=== PATIENT | female | born 1975 | race Caucasian/White ===

== ENCOUNTER 2020-12-23 19:27 | Emergency (ER) | payer SELFPAY ==
[2020-12-23] MEDS ORDERED: Sodium Chloride 0.9% 1,000 ML IV STA (20:16)
[2020-12-23] MEDS ORDERED: Sodium Chloride 0.9% 10 ML Syringe FLUSH PRN (20:16)
--- NOTE | 2020-12-23 20:24 | EDM.PDOC ---
ED HPI GENERAL MEDICAL PROBLEM - General Chief Complaint: PUMP TENDER Problem Stated Complaint: HEAVY VAGINAL BLEEDING Time Seen by Provider: 12/23/20 20:00 Source of Information: Reports: Patient History Limitations: Reports: Language Barrier (Family member is there to help) - History of Present Illness INITIAL COMMENTS - FREE TEXT/NARRATIVE: The patient presents for heavy vaginal bleeding. Her period started on Wednesday and she usually has heavy bleeding but this is worse. She feels lightheaded at times. She will also feels short of breath when she gets lightheaded. She does not think she is . She also has a slight cough and sore throat. She has no chest pain, abdominal pain, nausea or vomiting. She has no medical problems. Onset: Gradual Duration: Day(s): (3) Location: Reports: Pelvis Quality: Reports: Other (cramp) Severity: Mild Improves with: Reports: None Worsens with: Reports: None Associated Symptoms: Reports: No Other Symptoms Back Pain Score (Numeric/FACES): 5 - Related Data Allergies Allergy/AdvReac Type Severity Reaction Status Date / Time No Known Allergies Allergy Verified 12/23/20 20:02 Home Meds: Home Meds . [No Known Home Meds] 12/23/20 [History] Past Medical History - Past Health History Medical/Surgical History: Denies Medical/Surgical History Social & Family History - Tobacco Use Tobacco Use Status *Q: Never Tobacco User - Caffeine Use Caffeine Use: Reports: None - Recreational Drug Use Recreational Drug Use: No ED ROS GENERAL - Review of Systems Review Of Systems: See Below Constitutional: Reports: No Symptoms HEENT: Reports: No Symptoms Respiratory: Reports: Shortness of Breath. Denies: Cough Cardiovascular: Reports: Lightheadedness Endocrine: Reports: No Symptoms GI/Abdominal: Reports: No Symptoms : Reports: Other (Heavy vaginal bleeding) Musculoskeletal: Reports: No Symptoms ED EXAM, GI/ABD - Physical Exam Exam: See Below Exam Limited By: No Limitations General Appearance: Alert, No Apparent Distress Ears: Normal External Exam Nose: Normal Inspection Head: Atraumatic, Normocephalic Neck: Normal Inspection Respiratory/Chest: No Respiratory Distress, Lungs Clear, Normal Breath Sounds Cardiovascular: Regular Rate, Rhythm, No Edema, No Murmur GI/Abdominal Exam: Soft, Non-Tender, No Organomegaly, No Mass (Female) Exam: Vaginal Bleeding (moderate bleeding from the uterus) Back Exam: Normal Inspection Extremities: Normal Inspection Neurological: Alert, Oriented, No Motor/Sensory Deficits Course - Vital Signs Last Recorded V/S: Last Vital Signs Temp 97.9 F 12/23/20 19:55 Pulse 93 12/23/20 19:55 Resp 20 12/23/20 19:55 BP 122/45 L 12/23/20 19:55 Pulse Ox 100 12/23/20 19:55 - Orders/Labs/Meds Orders: Active Orders 24 hr Category Date Time Status Pelvic Exam, Set Up [RC] ASDIRECTED Care 12/23/20 20:17 Active Peripheral IV Care [RC] . DIRECTED Care 12/23/20 20:16 Active Transvaginal Non OB [US] Stat Exams 12/23/20 20:17 Taken ANTIBODY IDENTIFICATION [BBK] Stat Lab 12/23/20 20:25 Results RED BLOOD CELLS LP [BBK] Stat Lab 12/23/20 20:25 Results TYPE AND SCREEN [BBK] Stat Lab 12/23/20 20:25 Results Sodium Chloride 0.9% [Saline Flush] Med 12/23/20 20:16 Active 10 ml FLUSH ASDIRECTED PRN medroxyPROGESTERone [Provera] Med 12/23/20 22:23 Active 10 mg PO DAILY Peripheral IV Insertion Adult [OM.PC] Stat Oth 12/23/20 20:16 Ordered Transfuse PRBC [Transfuse Red Blood Cells] [COMM] Stat Oth 12/23/20 21:20 Ordered Medication Orders Medroxyprogesterone Acetate (Medroxyprogesterone 10 Mg Tab) 10 mg PO DAILY [facility] Last Admin: 12/23/20 22:27 Dose: 10 mg Documented by: AFUA Sodium Chloride (Sodium Chloride 0.9% 10 Ml Syringe) 10 ml FLUSH ASDIRECTED PRN PRN Reason: Keep Vein Open Last Admin: 12/23/20 20:54 Dose: 10 ml Documented by: AFUA Labs: Laboratory Tests 12/23/20 12/23/20 12/23/20 Range/Units 20:25 20:25 20:25 WBC (3.98-10.04) K/mm3 RBC (3.98-5.22) M/mm3 Hgb (11.2-15.7) gm/dl Hct (34.1-44.9) % MCV (79.4-94.8) fl MCH (25.6-32.2) pg MCHC (32.2-35.5) g/dl RDW Std Deviation (36.4-46.3) fL Plt Count (182-369) K/mm3 MPV (9.4-12.3) fl Neut % (Auto) (34.0-71.1) % Lymph % (Auto) (19.3-51.7) % [place] % (Auto) (4.7-12.5) % Eos % (Auto) (0.7-5.8) Baso % (Auto) (0.1-1.2) % Neut # (Auto) (1.56-6.13) K/mm3 Lymph # (Auto) (1.18-3.74) K/mm3 [place] # (Auto) (0.24-0.36) K/mm3 Eos # (Auto) (0.04-0.36) K/mm3 Baso # (Auto) (0.01-0.08) K/mm3 Manual Slide Review Sodium 131 L (136-145) mEq/L Potassium 3.7 (3.5-5.1) mEq/L Chloride 98 (98-107) mEq/L Carbon Dioxide 23 (21-32) mEq/L Anion Gap 13.7 (5-15) BUN 11 (7-18) mg/dL Creatinine 0.8 (0.55-1.02) mg/dL Est Cr Clr Drug Dosing 73.46 mL/min Estimated GFR (MDRD) > 60 (>60) mL/min BUN/Creatinine Ratio 13.8 L (14-18) Glucose 124 H (70-99) mg/dL Calcium 7.9 L (8.5-10.1) mg/dL Total Bilirubin 0.2 (0.2-1.0) mg/dL AST 17 (15-37) U/L ALT 17 (14-59) U/L Alkaline Phosphatase 50 (46-116) U/L Total Protein 6.5 (6.4-8.2) g/dl Albumin 3.2 L (3.4-5.0) g/dl Globulin 3.3 gm/dL Albumin/Globulin Ratio 1.0 (1-2) HCG, Qual Negative (NEGATIVE) SARS-CoV-2 RNA (AL) (NEGATIVE) Blood Type O POSITIVE Gel Antibody Screen Positive Crossmatch See Detail 12/23/20 12/23/20 Range/Units 21:11 22:55 WBC 8.66 (3.98-10.04) K/mm3 RBC 2.40 L (3.98-5.22) M/mm3 Hgb 3.8 L* (11.2-15.7) gm/dl Hct 15.2 L (34.1-44.9) % MCV 63.3 L (79.4-94.8) fl MCH 15.8 L (25.6-32.2) pg MCHC 25.0 L (32.2-35.5) g/dl RDW Std Deviation 44.9 (36.4-46.3) fL Plt Count 291 (182-369) K/mm3 MPV 10.0 (9.4-12.3) fl Neut % (Auto) 75.8 H (34.0-71.1) % Lymph % (Auto) 15.0 L (19.3-51.7) % Perkins % (Auto) 8.7 (4.7-12.5) % Eos % (Auto) 0.2 L (0.7-5.8) Baso % (Auto) 0.2 (0.1-1.2) % Neut # (Auto) 6.56 H (1.56-6.13) K/mm3 Lymph # (Auto) 1.30 (1.18-3.74) K/mm3 Perkins # (Auto) 0.75 H (0.24-0.36) K/mm3 Eos # (Auto) 0.02 L (0.04-0.36) K/mm3 Baso # (Auto) 0.02 (0.01-0.08) K/mm3 Manual Slide Review Abnormal smear Sodium (136-145) mEq/L Potassium (3.5-5.1) mEq/L Chloride (98-107) mEq/L Carbon Dioxide (21-32) mEq/L Anion Gap (5-15) BUN (7-18) mg/dL Creatinine (0.55-1.02) mg/dL Est Cr Clr Drug Dosing mL/min Estimated GFR (MDRD) (>60) mL/min BUN/Creatinine Ratio (14-18) Glucose (70-99) mg/dL Calcium (8.5-10.1) mg/dL Total Bilirubin (0.2-1.0) mg/dL AST (15-37) U/L ALT (14-59) U/L Alkaline Phosphatase (46-116) U/L Total Protein (6.4-8.2) g/dl Albumin (3.4-5.0) g/dl Globulin gm/dL Albumin/Globulin Ratio (1-2) HCG, Qual (NEGATIVE) SARS-CoV-2 RNA (AL) Positive H (NEGATIVE) Blood Type Gel Antibody Screen Crossmatch Meds: Medications Generic Name Dose Route Start Last Admin Trade Name Freq PRN Reason Stop Dose Admin Medroxyprogesterone Acetate 10 mg 12/23/20 22:23 12/23/20 22:27 Medroxyprogesterone 10 Mg Tab PO 10 mg DAILY [facility] Administration Sodium Chloride 10 ml 12/23/20 20:16 12/23/20 20:54 Sodium Chloride 0.9% 10 Ml Syringe FLUSH 10 ml ASDIRECTED PRN Administration Keep Vein Open Discontinued Medications Generic Name Dose Route Start Last Admin Trade Name Freq PRN Reason Stop Dose Admin Sodium Chloride 1,000 mls @ 1,000 mls/hr 12/23/20 20:16 12/23/20 20:54 Normal Saline IV 12/23/20 21:15 1,000 mls/hr .BOLUS STA Administration Medroxyprogesterone Acetate 10 mg 12/24/20 09:00 Medroxyprogesterone 10 Mg Tab PO DAILY [facility] - Re-Assessments/Exams Free Text/Narrative Re-Assessment/Exam: 12/23/20 20:25 I ordered an IV NS 1L bolus, labs, transvaginal non OB US and a pelvic exam. 12/24/20 00:08 Her Hgb was low at 3.8. Her Na was low at 131. Her glucose was 124. Her HCG is negative. She is COVID positive. Her pelvic exam shows moderate bleeding from the cervix. Her US shows enlarged uterus with an 8.4 cm heterogenous but predominantly hypoechoic mass in the posteroinferior aspect of the uterus. It is difficult to determine the relationship between this mass and the endometrium. The mass most likely represents a large fibroid, but an endometrial mass is difficult to exclude with certainty. It may be beneficial to perform female pelvic protocol MRI for more definitive evaluation. Normal sonographic appearance fo the ovaries. I ordered 3 units of blood. I called Dr Hesham Gonzales our PUMP TENDER consulting solution director and I said there were no beds anywhere so I was going to transfuse her here in the ER and see how she is in the morning. If she is doing better I will have her follow up with him for a consult for biopsy and eventual surgery. He wanted me to try some provera so I gave her 10mg. The lab called and she has antibodies in her blood. They will not be able to get any blood until late tomorrow. I called [facility] in [place] and talked with the PUMP TENDER consulting solution director Dr Luo and she accepted the patient. Her COVID came back positive. I let [facility] in [place] know and they still accepted her. She a slight cough last week and none since Wednesday. She will be going by ambulance. Departure - Departure Time of Disposition: 00:20 Disposition: DC/Tfer to Acute Hospital 02 Condition: Serious Clinical Impression: Vaginal bleeding, Red blood cell antibody positive Anemia Qualifiers: Anemia type: other cause Other causes of anemia: other cause, not classified Qualified Code(s): D64.89 - Other specified anemias - Discharge Information Referrals: PCP,None [Primary Care Provider] - Forms: ED Department Discharge Sepsis Event Note (ED) - Evaluation Sepsis Screening Result: No Definite Risk - Focused Exam Vital Signs: Vital Signs Temp Pulse Resp BP Pulse Ox 12/23/20 19:55 97.9 F 93 20 122/45 L 100 - My Orders Last 24 Hours: My Active Orders 12/23/20 20:16 Peripheral IV Care [RC] . DIRECTED Sodium Chloride 0.9% [Saline Flush] 10 ml FLUSH ASDIRECTED PRN Peripheral IV Insertion Adult [OM.PC] Stat 12/23/20 20:17 Pelvic Exam, Set Up [RC] ASDIRECTED Transvaginal Non OB [US] Stat 12/23/20 20:25 ANTIBODY IDENTIFICATION [BBK] Stat RED BLOOD CELLS LP [BBK] Stat TYPE AND SCREEN [BBK] Stat 12/23/20 21:20 Transfuse PRBC [Transfuse Red Blood Cells] [COMM] Stat 12/23/20 22:23 medroxyPROGESTERone [Provera] 10 mg PO DAILY - Assessment/Plan Last 24 Hours: My Active Orders 12/23/20 20:16 Peripheral IV Care [RC] . DIRECTED Sodium Chloride 0.9% [Saline Flush] 10 ml FLUSH ASDIRECTED PRN Peripheral IV Insertion Adult [OM.PC] Stat 12/23/20 20:17 Pelvic Exam, Set Up [RC] ASDIRECTED Transvaginal Non OB [US] Stat 12/23/20 20:25 ANTIBODY IDENTIFICATION [BBK] Stat RED BLOOD CELLS LP [BBK] Stat TYPE AND SCREEN [BBK] Stat 12/23/20 21:20 Transfuse PRBC [Transfuse Red Blood Cells] [COMM] Stat 12/23/20 22:23 medroxyPROGESTERone [Provera] 10 mg PO DAILY
--- NOTE | 2020-12-24 07:03 | US ---
Pelvic ultrasound: Multiple real-time images were obtained both transabdominally and transvaginally. Comparison: No previous study is available. Large and slightly hypoechoic mass is seen within the endometrium of the lower uterus. This measures 8.4 x 8.2 x 8.2 cm. Uterus is anteverted. Endometrial thickness is difficult to measure because of the mass. Nabothian cyst is present. Right and left ovaries appear within normal limits. Measurements: Right ovary: 3.7 x 1.6 x 3.1 cm Left ovary: 3.1 x 1.8 x 2.5 cm Uterus: Length 13.7 cm, AP height 12.5 cm, transverse width 12.9 cm Impression: 1. Large abnormality with measurements up to 8.4 cm projected within the endometrial cavity of the lower uterus. This could represent a subendometrial fibroid. Other etiology is other endometrial mass. Biopsy could be considered. Alternatively if further imaging is needed, MRI would be helpful to further evaluate. 2. Endometrial thickness is difficult to measure because of the mass. 3. Incidental nabothian cysts. Other portions of the pelvic ultrasound are unremarkable. Diagnostic code #9 I agree with preliminary report from [facility], finalized on 12/23/20, 10:58 PM CDT, code 1
== END 2020-12-24 00:30 ==
LOC: JD.ED 19:27
DX: U07.1 COVID-19 (principal); N93.9 Abnormal uterine and vaginal bleeding, unspecified; R71.8 Other abnormality of red blood cells
CPT/HCPCS: 36415; 76830; 80053; 84703; 85025; 87635; 99285; A9270; J7030; 86850; 86870; 86900; 86901; 86922; 99283; U0002

== ENCOUNTER 2020-12-26 17:28 | Emergency (ER) | payer SELFPAY ==
[2020-12-26] MEDS ORDERED: Sodium Chloride 0.9% 10 ML Syringe FLUSH PRN (17:52)
--- NOTE | 2020-12-26 18:50 | EDM.PDOC ---
ED HPI GENERAL MEDICAL PROBLEM - General Chief Complaint: MOTORBOAT MECHANIC Problem Stated Complaint: HEAVY VAG BLEEDING Time Seen by Provider: 12/26/20 17:51 Source of Information: Reports: Patient, Family, RN Notes Reviewed History Limitations: Reports: No Limitations - History of Present Illness INITIAL COMMENTS - FREE TEXT/NARRATIVE: Patient is a 45-year-old female presenting to the emergency department with heavy vaginal bleeding. She was seen in this emergency department 2 days ago with similar complaint and at that time found to have a hemoglobin of 3.8. Her blood has antibodies, therefore we cannot transfuse her here. She was transferred to [facility] in [place] where she received 4 units of blood and was discharged. Reports she had light vaginal bleeding up until early this afternoon when she started bleeding heavily again. She has saturate approximately 10 pads and is passing golf ball size clots. Denies any cramping or pain. Ultrasound completed 2 days ago when she was in our department showed an 8.4 cm mass within her uterus could be possible fibroid versus endometrial mass. Patient denies any shortness of breath or dizziness. Patient did test positive for Covid 2 days ago in the ER. Reports mild cough but no other symptoms. - Related Data Allergies Allergy/AdvReac Type Severity Reaction Status Date / Time No Known Allergies Allergy Verified 12/23/20 20:02 Home Meds: Home Meds Ferrous Sulfate 1 tab PO DAILY 12/26/20 [History] Past Medical History - Past Health History Medical/Surgical History: Denies Medical/Surgical History MOTORBOAT MECHANIC History: Reports: Other (See Below) Other MOTORBOAT MECHANIC History: mass to uterus. - Infectious Disease History Infectious Disease History: Reports: None Social & Family History - Tobacco Use Tobacco Use Status *Q: Never Tobacco User - Caffeine Use Caffeine Use: Reports: Coffee - Recreational Drug Use Recreational Drug Use: No ED ROS GENERAL - Review of Systems Review Of Systems: Comprehensive ROS is negative, except as noted in HPI. ED EXAM, RENAL/ - Physical Exam Exam: See Below Exam Limited By: No Limitations General Appearance: Alert, WD/WN, No Apparent Distress Respiratory/Chest: No Respiratory Distress, Lungs Clear, Normal Breath Sounds, No Accessory Muscle Use, Chest Non-Tender Cardiovascular: Normal Peripheral Pulses, Regular Rate, Rhythm, No Edema, No Gallop, No JVD, No Murmur, No Rub GI/Abdominal: Normal Bowel Sounds, Soft, Non-Tender, No Organomegaly, No Distention, No Abnormal Bruit, No Mass Neurological: Alert, Oriented, CN II-XII Intact, Normal Cognition, Normal Gait, Normal Reflexes, No Motor/Sensory Deficits Psychiatric: Normal Affect, Normal Mood Skin Exam: Warm, Dry, Intact, Normal Color, No Rash Course - Vital Signs Last Recorded V/S: Last Vital Signs Temp 98.0 F 12/26/20 19:52 Pulse 82 12/26/20 19:52 Resp 16 12/26/20 19:52 BP 120/63 12/26/20 19:52 Pulse Ox 98 12/26/20 19:52 - Orders/Labs/Meds Orders: Active Orders 24 hr Category Date Time Status Peripheral IV Insertion Adult [OM.PC] Stat Oth 12/26/20 17:52 Ordered Labs: Laboratory Tests 12/26/20 12/26/20 Range/Units 18:05 18:05 WBC 11.09 H (3.98-10.04) K/mm3 RBC 3.61 L (3.98-5.22) M/mm3 Hgb 7.7 L D (11.2-15.7) gm/dl Hct 26.2 L (34.1-44.9) % MCV 72.6 L D (79.4-94.8) fl MCH 21.3 L (25.6-32.2) pg MCHC 29.4 L (32.2-35.5) g/dl RDW Std Deviation 63.1 H (36.4-46.3) fL Plt Count 283 (182-369) K/mm3 MPV 10.7 (9.4-12.3) fl Neut % (Auto) 78.8 H (34.0-71.1) % Lymph % (Auto) 14.2 L (19.3-51.7) % [place] % (Auto) 6.1 (4.7-12.5) % Eos % (Auto) 0.4 L (0.7-5.8) Baso % (Auto) 0.3 (0.1-1.2) % Neut # (Auto) 8.74 H (1.56-6.13) K/mm3 Lymph # (Auto) 1.58 (1.18-3.74) K/mm3 [place] # (Auto) 0.68 H (0.24-0.36) K/mm3 Eos # (Auto) 0.04 (0.04-0.36) K/mm3 Baso # (Auto) 0.03 (0.01-0.08) K/mm3 Sodium 136 (136-145) mEq/L Potassium 3.7 (3.5-5.1) mEq/L Chloride 100 (98-107) mEq/L Carbon Dioxide 22 (21-32) mEq/L Anion Gap 17.7 H (5-15) BUN 11 (7-18) mg/dL Creatinine 1.0 (0.55-1.02) mg/dL Est Cr Clr Drug Dosing 58.77 mL/min Estimated GFR (MDRD) 60 (>60) mL/min BUN/Creatinine Ratio 11.0 L (14-18) Glucose 143 H (70-99) mg/dL Calcium 7.9 L (8.5-10.1) mg/dL Total Bilirubin 0.5 (0.2-1.0) mg/dL AST 22 (15-37) U/L ALT 14 (14-59) U/L Alkaline Phosphatase 60 (46-116) U/L Total Protein 6.8 (6.4-8.2) g/dl Albumin 3.3 L (3.4-5.0) g/dl Globulin 3.5 gm/dL Albumin/Globulin Ratio 0.9 L (1-2) Meds: Medications Discontinued Medications Generic Name Dose Route Start Last Admin Trade Name Freq PRN Reason Stop Dose Admin Sodium Chloride 1,000 mls @ 100 mls/hr 12/26/20 18:53 Normal Saline IV 12/27/20 04:52 NOW STA Sodium Chloride 10 ml 12/26/20 17:52 12/26/20 18:07 Sodium Chloride 0.9% 10 Ml Syringe FLUSH 10 ml ASDIRECTED PRN Administration Keep Vein Open - Re-Assessments/Exams Free Text/Narrative Re-Assessment/Exam: Patient is a 45-year-old female return to the emergency department with complaints of recurrence of heavy vaginal bleeding. 2 days ago, hemoglobin is 3.8 and she was transfused 4 units of blood at [facility] in [place]. Bleeding recurred earlier this afternoon. I have ordered CBC and CMP. 12/26/20 18:50 Hemoglobin is currently 7.7. Spoke with the MOTORBOAT MECHANIC on-call, Dr. Pressley. She recommended patient be transferred to a facility that has a blood available for transfusion as she would likely need it. Called [facility] in [place] and spoke with Dr. Dean. He has accepted the patient for transfer. Patient has agreed to go by ambulance. We will start IV fluids of normal saline at 100 mill per hour. Departure - Departure Time of Disposition: 18:50 Disposition: DC/Tfer to [facility] 02 Condition: Good Clinical Impression: Vaginal bleeding, Red blood cell antibody positive Anemia Qualifiers: Anemia type: unspecified type Qualified Code(s): D64.9 - Anemia, unspecified - Discharge Information Referrals: PCP,None [Primary Care Provider] - Forms: ED Department Discharge Sepsis Event Note (ED) - Focused Exam Vital Signs: Vital Signs Temp Pulse Resp BP Pulse Ox 12/26/20 19:52 98.0 F 82 16 120/63 98 12/26/20 17:55 97.5 F 99 20 119/71 95 - My Orders Last 24 Hours: My Active Orders 12/26/20 17:52 Peripheral IV Insertion Adult [OM.PC] Stat - Assessment/Plan Last 24 Hours: My Active Orders 12/26/20 17:52 Peripheral IV Insertion Adult [OM.PC] Stat
[2020-12-26] MEDS ORDERED: Sodium Chloride 0.9% 1,000 ML IV STA (18:53)
== END 2020-12-26 19:20 ==
LOC: JD.ED 17:28
DX: N93.9 Abnormal uterine and vaginal bleeding, unspecified (principal); D64.9 Anemia, unspecified
CPT/HCPCS: 36415; 80053; 85025; 99284; 99285